=== PATIENT | female | born 1975 | race Caucasian/White ===

== ENCOUNTER 2018-08-01 08:10 | Emergency (ER) | payer BC ==
[2018-08-01 09:02] VITALS: BP 121/68
[2018-08-01] MEDS ORDERED: Tetan/Diph/Pertus SYR(Tdap)* 0.5 ML SYR(BOOSTRIX) use SYR IM ONE (09:30)
--- NOTE | 2018-08-01 09:31 | UC ---
Lower Extremity/Ankle HPI - HPI Summary HPI Summary: The patient is a 43-year-old female that apparently walk barefooted where there was some broken glass and sustained a foreign body in her left foot. He was unable to remove it. Unsure of her last tetanus shot and believes it was greater than 10 years ago. - History of Current Complaint Chief Complaint: [employer] Stated Complaint: LEFT FOOT COMPAINT (GLASS) Time Seen by Provider: 08/01/18 09:16 Hx Obtained From: Patient Hx Last Menstrual Period: 06/27/18 Onset/Duration: Sudden Onset Severity Initially: Moderate Severity Currently: Mild Pain Intensity: 1 Pain Scale Used: 0-10 Numeric Aggravating Factor(s): Standing, Ambulation Alleviating Factor(s): Rest Able to Bear Weight: Yes - Allergies/Home Medications Allergies/Adverse Reactions: Allergies Allergy/AdvReac Type Severity Reaction Status Date / Time minocycline AdvReac Unknown LEG VEINS Verified 08/01/18 08:54 TURNED DARK AFTER TAKING MED FOR 2 YEARS FOR ACNE. Home Medications: Home Medications Cephalexin CAP* [Keflex 250 CAP*] 250 mg PO DAILY 08/01/18 [History Confirmed ] PMH/Surg Hx/FS Hx/Imm Hx Previously Healthy: Yes Other History Of: Negative For: HIV - Surgical History Surgical History: Yes Surgery Procedure, Year, and Place: umbillical hernia repair 2010. MEI BACK. 2 C-SECTIONS - Family History Known Family History: Positive: Hypertension - Social History Alcohol Use: Occasionally Substance Use Type: None Smoking Status (MU): Former Smoker Type: Cigarettes Have You Smoked in the Last Year: No When Did the Patient Quit Smoking/Using Tobacco: 25 YRS AGO - Immunization History Most Recent Tetanus Shot: UNKNOW Vaccination Up to Date: Yes Review of Systems Constitutional: Negative Skin: Negative Eyes: Negative ENT: Negative Respiratory: Negative Cardiovascular: Negative Gastrointestinal: Negative Genitourinary: Negative Motor: Negative Neurovascular: Negative Musculoskeletal: Negative Neurological: Negative Psychological: Negative All Other Systems Reviewed And Are Negative: Yes Physical Exam Triage Information Reviewed: Yes Appearance: Well-Appearing, No Pain Distress, Well-Nourished Vital Signs: Initial Vital Signs Temp 97.8 F 08/01/18 08:54 Pulse 61 08/01/18 08:54 Resp 18 08/01/18 08:54 BP 121/68 08/01/18 08:54 Pulse Ox 99 10/11/18 08:54 Vital Signs Reviewed: Yes Eyes: Positive: Conjunctiva Clear ENT: Positive: Hearing grossly normal. Negative: Nasal congestion, Nasal drainage, Trismus, Muffled voice, Hoarse voice Neck: Positive: Supple Respiratory: Positive: Lungs clear, Normal breath sounds, No respiratory distress, No accessory muscle use Cardiovascular: Positive: RRR, No Murmur Neurological: Positive: Alert Psychological Exam: Normal Skin Exam: Other - fb noted left heel Procedures - Procedure Summary Procedure Summary: FOREIGN BODY REMOVAL LEFT FOOT glass shard removed with forceps area clean by me tolerated procedure well Lower Extremity Course/Dx - Differential Dx/Diagnosis Provider Diagnoses: foreign body removal removed left foot Discharge - Sign-Out/Discharge Documenting (check all that apply): Patient Departure All imaging exams completed and their final reports reviewed: No Studies - Discharge Plan Condition: Stable Disposition: HOME Patient Education Materials: Soft Tissue Foreign Body (ED) Referrals: Zechariah Dennis MD [Primary Care Provider] - Additional Instructions: return for any problems call for any questions - Billing Disposition and Condition Condition: STABLE Disposition: Home Images Feet (Multiple View): 1 - glass aubreycielo note
== END 2018-08-01 09:41 | disposition home or self-care (01) ==
LOC: UCCORT 08:10
DX: S91.322A Laceration with foreign body, left foot, initial encounter (principal); W22.8XXA Striking against or struck by other objects, initial encounter; Y93.01 Activity, walking, marching and hiking; Y92.9 Unspecified place or not applicable; Z88.1 Allergy status to other antibiotic agents; Z87.891 Personal history of nicotine dependence
CPT/HCPCS: 90471; 90715; 99211; G0463